=== PATIENT | female | born 1955 | race Caucasian/White ===

== ENCOUNTER 2017-01-16 15:45 | Emergency (ER) | payer MEDICARE, BC ==
[~2017-01-16] VITALS: Ht 157.5 cm; Wt 46.0 kg
[~2017-01-16 15:45] MED LIST: ALBU8.5H3 INH; ASPI325T32 PO; NITR-58 PO
[2017-01-16 15:49] VITALS: Ht 157.5 cm; Wt 46.0 kg
--- NOTE | 2017-01-16 18:32 | RADRPT ---
PROCEDURE: CT Head without. CLINICAL INDICATION: Headache. TECHNIQUE: The study was performed utilizing a multi-slice, multidetector CT scanner. Direct spira l 1 mm axial sections were obtained through the head without the use of intravenous contrast materia l. 1 or more of the following dose reduction techniques were utilized: Automated exposure control, adjustment of the mA and/or kV according to patient's size, iterative reconstruction technique. Co tano and sagittal reformations were obtained. The images were reviewed on a PACS workstation. DICOM images are available. RADIATION DOSE: CTDIvol: 45.0 mGyDLP: 630.2 mGy-cm COMPARISON: 12/09/2014 FINDINGS: There is no intracranial hemorrhage, extra-axial fluid collection, mass lesion, midline shift or hyd rocephalus. There is mild prominence of the cerebral sulci, lateral and third ventricles. There is mild periventricular and subcortical white matter hypodensity. There is mild arteriosclerotic calc ification of the parasellar internal carotid arteries. The lan-white matter differentiation is pre served. The basal cisterns are patent. The midline structures are intact. The orbits, calvarium a nd extracranial soft tissues are normal in appearance. The visualized paranasal sinuses, mastoid air cells and middle ear cavities are normally aerated. IMPRESSION: 1. No acute intracranial abnormality. No intracranial hemorrhage, extra-axial fluid collection, ma ss lesion or hydrocephalous. 2. Mild peripheral and central cerebral volume loss. 3. Mild periventricular and subcortical white matter hypodensity, likely related to chronic microan giopathic changes. RPTAT: HGAS .Naseem Youssef MD, Date Time Electronically viewed and signed by .Naseem Youssef MD, on 01/16/2017 18:32 .S/
[2017-01-16] MEDS ORDERED: OXYM30SP83 NASAL (18:42)
[2017-01-16] MEDS ORDERED: ACET500C5 PO (18:42)
[2017-01-16] MEDS ORDERED: CETI10CA PO (18:42)
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
[2017-01-16 19:15] VITALS: BP 154/85; PULSE 62; RESP 18; TEMP 98.3
== END 2017-01-16 19:17 | disposition home or self-care (01) ==
LOC: FTE 15:45
DX: R51 Headache (principal); J45.909 Unspecified asthma, uncomplicated; Z79.82 Long term (current) use of aspirin
CPT/HCPCS: 70450